=== PATIENT | female | born 1945 | race Caucasian/White ===

== ENCOUNTER → 2018-06-08 | Outpatient (REF) | payer MEDICARE, OTHER ==
[~2018-06-08] MED LIST: ACIPHEX20 MG OR; AMLODIPINE5 MG PO; ATIVAN1 M1 OR; ATIVAN1 MG PO; ATIVAN2 MG PO; AVAPRO300 MG OR; AVAPRO75 MG OR; CELEXA20 MG PO; CELEXA40 MG PO; CIPROFLOXACN500 MG PO; CLONIDINE0.1 MG PO; COREG CR20 MG OR; COREG12.5 MG PO; COREG25 MG OR; COREG6.25 MG PO; COUMADIN10 MG OR; COUMADIN7.5 MG OR; COZAAR100 MG PO; COZAAR50 MG PO; DEMEROL OR; DILAUDID 2MG2 MG/TA1 PO; DILAUDID2 MG OR; DOXYCYC MONO100 M1 OR; EFFEXOR XR75 MG PO; HUMALOG100 MG/ML; HUMALOG100 UNIT/M SC; KEFLEX500 MG PO; LASIX 20 MG20 MG/TAB PO; LEVEMIR SC; LEVEMIR1000 UNITS; LORTAB5 PO; METFORMIN1000 MG PO; METFORMIN500 M1 OR; METFORMIN500 MG PO; NORVASC10 M1 PO; PERCOCET 5/325M1 TAB OR; PLAVIX75 MG PO; PRAVASTATIN40 MG PO; PRILOSEC20 MG OR; PROTONIX40 M2 PO; SULAR10 MG OR; VENLAFAXINE37.5 M2 PO
[2018-06-08 11:18] LABS: ALBUMIN 3.5 g/dL (3.2-5.0); ALKALINE PHOSPHATASE 82 u/l (38-126); ANION GAP 11 (6-22 (CALC)); BILIRUBIN, TOTAL 0.6 mg/dL (0.0-1.4); BUN 13 mg/dL (8-23); BUN/CREATININE RATIO 17 (12-20 (CALC)); CARBON DIOXIDE 28 mmol/l (22-30); CHLORIDE 108 mmol/l (95-108); CREATININE 0.8 mg/dL (0.5-1.0); GFR > 60 ML/MIN (>=60 (CALC)); GFR FOR AFR.AMER. > 60 ML/MIN (>=60 (CALC)); POTASSIUM 4.2 mmol/l (3.5-5.1); SGOT/AST 15 u/l (9-36); SODIUM 142 mmol/l (137-146); TOTAL PROTEIN 6.1 g/dL (6.3-8.2)
== END | disposition home or self-care (01) ==
LOC: LAB 09:57
PROVIDERS: ATTEND Internal Medicine
DX: E11.29 Type 2 diabetes mellitus with other diabetic kidney complication (principal)

== ENCOUNTER 2021-03-24 14:41 | Emergency (ER) | payer MEDICARE, OTHER ==
[~2021-03-24] VITALS: Ht 165.1 cm; Wt 80.0 kg
[2021-03-24 16:30] LABS: HEMATOCRIT 34.8 % (37.0-47.0); HEMOGLOBIN 10.9 g/dl (12.0-16.0); IMMATURE GRANULOCYTES 0.2 % (0.0-5.0); MEAN CELL VOLUME 90.6 fL CALC (80.0-100.0); MEAN CORPUSCULAR HGB 28.4 pG CALC (26.0-32.0); MEAN CORPUSCULAR HGB CONC 31.3 g/dL CAL (32.0-36.0); NEUT# 4.89 thou/uL (2.00-7.15); RED BLOOD COUNT 3.84 mill/uL (4.20-5.60); RED CELL DISTRI WIDTH 13.5 % (11.5-15.5)
[2021-03-24 16:46] LABS: ALBUMIN 3.2 g/dL (3.2-5.0); ALKALINE PHOSPHATASE 89 u/l (38-126); ANION GAP 8 (6-22 (CALC)); BILIRUBIN, TOTAL 0.3 mg/dL (0.0-1.4); BUN 14 mg/dL (8-23); BUN/CREATININE RATIO 14 (12-20 (CALC)); CARBON DIOXIDE 30 mmol/l (22-30); CHLORIDE 106 mmol/l (95-108); GFR 54 ML/MIN (>=60 (CALC)); GFR FOR AFR.AMER. > 60 ML/MIN (>=60 (CALC)); LIPASE 86 u/l (23-300); POTASSIUM 3.9 mmol/l (3.5-5.1); SGOT/AST 17 u/l (9-36); SODIUM 140 mmol/l (137-146); TOTAL PROTEIN 6.3 g/dL (6.3-8.2)
[2021-03-24 16:52] LABS: ACT PARTIAL THROMBO TIME 23.6 SECONDS (20.0-32.5); INTERNATIONAL NORMALIZED RATIO 0.9 RATIO (0.7-1.3); PROTHROMBIN TIME 9.9 SECONDS (9.0-12.5)
[2021-03-24 17:12] LABS: URINE BILIRUBIN - DIPSTICK NEGATIVE (NEGATIVE); URINE BLOOD DIPSTICK NEGATIVE (NEGATIVE); URINE COLOR YELLOW; URINE GLUCOSE - DIPSTICK NEGATIVE (NEGATIVE); URINE KETONE NEGATIVE (NEGATIVE); URINE LEUK ESTERASE TRACE (NEGATIVE); URINE PROTEIN - DIPSTICK NEGATIVE (NEG-TRACE); URINE UROBILINOGEN - DIPSTICK 0.2 E.U./dL (0.2)
[2021-03-24 17:13] LABS: URINE NITRITE - DIPSTICK NEGATIVE (Negative)
[2021-03-24 17:54] VITALS: BP 166/72
== END 2021-03-24 18:11 | disposition home or self-care (01) ==
LOC: ED 14:41
DX: R53.1 Weakness (principal); D64.9 Anemia, unspecified; I10 Essential (primary) hypertension; F17.200 Nicotine dependence, unspecified, uncomplicated; Z20.822 Contact with and (suspected) exposure to COVID-19

== ENCOUNTER 2021-03-29 14:58 | Emergency (ER) | payer MEDICARE, OTHER ==
[~2021-03-29] VITALS: Ht 165.1 cm; Wt 90.0 kg
[2021-03-29 16:37] LABS: HEMATOCRIT 35.8 % (37.0-47.0); HEMOGLOBIN 11.4 g/dl (12.0-16.0); IMMATURE GRANULOCYTES 0.3 % (0.0-5.0); MEAN CELL VOLUME 91.1 fL CALC (80.0-100.0); MEAN CORPUSCULAR HGB CONC 31.8 g/dL CAL (32.0-36.0); NEUT# 4.84 thou/uL (2.00-7.15); RED BLOOD COUNT 3.93 mill/uL (4.20-5.60); RED CELL DISTRI WIDTH 13.6 % (11.5-15.5)
[2021-03-29 16:53] LABS: ALBUMIN 3.5 g/dL (3.2-5.0); ALKALINE PHOSPHATASE 94 u/l (38-126); ANION GAP 7 (6-22 (CALC)); BUN 13 mg/dL (8-23); BUN/CREATININE RATIO 13 (12-20 (CALC)); CARBON DIOXIDE 30 mmol/l (22-30); CHLORIDE 107 mmol/l (95-108); GFR 54 ML/MIN (>=60 (CALC)); GFR FOR AFR.AMER. > 60 ML/MIN (>=60 (CALC)); POTASSIUM 3.8 mmol/l (3.5-5.1); SGOT/AST 21 u/l (9-36); SODIUM 140 mmol/l (137-146); TOTAL PROTEIN 6.7 g/dL (6.3-8.2)
[2021-03-29 16:54] LABS: BILIRUBIN, TOTAL 0.5 mg/dL (0.0-1.4)
[2021-03-29 20:57] VITALS: BP 117/63
== END 2021-03-29 20:50 | disposition short-term general hospital (02) ==
LOC: ED 14:58
PROVIDERS: Emergency Medicine
DX: R42 Dizziness and giddiness (principal); I99.8 Other disorder of circulatory system; R93.89 Abnormal findings on diagnostic imaging of other specified body structures; I10 Essential (primary) hypertension; E11.9 Type 2 diabetes mellitus without complications; I25.10 Atherosclerotic heart disease of native coronary artery without angina pectoris; F17.200 Nicotine dependence, unspecified, uncomplicated; Z95.5 Presence of coronary angioplasty implant and graft; Z79.84 Long term (current) use of oral hypoglycemic drugs; Z79.4 Long term (current) use of insulin
CPT/HCPCS: Q9967